=== PATIENT | male | born 1965 | race Caucasian/White ===

== ENCOUNTER 2018-02-26 08:06 | Emergency (ER) | payer OTHER ==
--- NOTE | 2018-02-26 08:21 | CPEKG ---
Heart Rate: 75 RR Interval: 800 P-R Interval: 144 QRSD Interval: 90 QT Interval: 392 QTC Interval: 438 P [place]: 12 QRS [place]: 35 T Wave [place]: 14 EKG Severity - NORMAL ECG - EKG Impression: SINUS RHYTHM Electronically Signed By: Eros Tesfaye 26-Feb-2018 14:38:15
--- NOTE | 2018-02-26 08:44 | EDPHY ---
H & P Time Seen by Provider: 02/26/18 08:43 HPI/ROS: Chief complaint. Lightheaded HPI. Patient's 52-year-old male presents emergency department with continuous chest pressure and heaviness in his chest for the last 5 days. 5 days ago he had a stent placed at [facility]. He has had constant chest pain since then. He had this similar chest discomfort for months preceding his procedure. Prior to the procedure the heaviness and pressure in his chest was worse with exertion and he had shortness of breath. Since the procedure he has had some mild but constant chest pressure but no change in shortness of breath. His chest discomfort is not change with exertion, breathing, position. It is described as behind the sternum and without radiation. No unusual leg pain or swelling. In the last 48 hr he has had 2 episodes of lightheadedness. Prior to his procedure he had been lightheaded similarly 4 months. Now he has had 2 waves in the past 48 hr. No symptoms now. No focal weakness or paresthesias. ROS Constitutional. no fever/chills, no weakness Eyes. no problems with vision ENT. no sore throat, no nasal drainage Cardiovascular. Chest heaviness Respiratory. no shortness of breath, no cough Abdominal. no abdominal pain, no nausea/vomiting, no diarrhea . no problems urinating MS. no calf pain/swelling, no neck/back pain, no joint pain Skin. no rash Lymph. no swollen glands Neuro. Lightheaded Past Medical/Surgical History: Dyslipidemia, recent cardiac stent Social History: , nonsmoker, no alcohol Smoking Status: Never smoked Physical Exam: General Appearance: Alert well-developed male mild distress vital signs are stable Eyes: Pupils equal and round no pallor or injection. ENT, Mouth: Mucous membranes are moist. Respiratory: There are no retractions, lungs are clear to auscultation. Cardiovascular: Regular rate and rhythm. Gastrointestinal: Abdomen is soft and nontender, no masses, bowel sounds normal. Neurological: Awake and alert, sensory and motor exams grossly normal. Skin: Warm and dry, no rashes. Musculoskeletal: Neck is supple nontender. Extremities symmetrical, full range of motion. Psychiatric: Patient is oriented X 3, there is no agitation. Constitutional: Initial Vital Signs Temperature (C) 36.5 C 02/26/18 08:09 Heart Rate 77 06/05/18 08:09 Respiratory Rate 18 02/26/18 08:09 Blood Pressure 182/106 H 02/26/18 08:09 O2 Sat (%) 97 02/26/18 08:09 O2 Delivery Mode Room Air Allergies/Adverse Reactions: No Known Allergies Allergy (Unverified 02/26/18 08:07) Home Medications: Medication Instructions Recorded Aspirin 81mg (*) 02/26/18 Plavix 02/26/18 Rosuvastatin Calcium 02/26/18 Medical Decision Making - Diagnostics EKG Interpretation: EKG interpreted by me shows normal sinus rhythm normal interval and axis. QRS is normal there is no significant ST elevation or depression. There is no arrhythmia. The rate is 75 Imaging Results: Imaging Impressions Chest X-Ray 02/26/18 08:59 Impression: Negative. Procedures: IV normal saline, monitor ED Course/Re-evaluation: Re-evaluation 9:55 a.m.. Patient is stable. He and I discussed EKG, lab, imaging study results. I consulted and discussed case with Dr. Sobeida Mercado ([phone]) his sap consultant who saw the patient last week and performed the treadmill. She tells me that the patient had a proximal LAD stent placed. She and I discussed workup and she is comfortable with the patient being treated as an outpatient and will see the patient in the office tomorrow. I discussed this treatment plan with the patient. He is also offered admission but declines. We discussed risks and benefits of admission versus outpatient workup. The patient is comfortable following up tomorrow with his sap consultant.. He is encouraged to return at any point for worsening symptoms Differential Diagnosis: Patient with a recent stent for chronic problems and continues to have some chest heaviness. However he has a normal workup including normal EKG and troponin as well as D-dimer. He has had continuous chest discomfort and with normal troponin I do not think that this isonary syndrome - Data Points Laboratory Results: Laboratory Results 02/26/18 08:20 02/26/18 08:20 02/26/18 02/26/18 02/26/18 08:25 08:20 08:20 WBC RBC Hgb Hct MCV MCH MCHC RDW Plt Count MPV Neut % (Auto) Lymph % (Auto) [place] % (Auto) Eos % (Auto) Baso % (Auto) Nucleat RBC Rel Count Absolute Neuts (auto) Absolute Lymphs (auto) Absolute Monos (auto) Absolute Eos (auto) Absolute Basos (auto) Absolute Nucleated RBC Immature Gran % Immature Gran # PT 13.2 SEC SEC (12.0-15.0) INR 0.98 (0.83-1.16) D-Dimer 0.47 ug/mLFEU ug/mLFEU (0.00-0.50) Sodium 144 mEq/L mEq/L (135-145) Potassium 4.1 mEq/L mEq/L (3.3-5.0) Chloride 103 mEq/L mEq/L (97-110) Carbon Dioxide 26 mEq/l mEq/l (22-31) Anion Gap 15 mEq/L mEq/L (8-16) BUN 20 mg/dL mg/dL (7-23) Creatinine 0.9 mg/dL mg/dL (0.7-1.3) Estimated GFR > 60 Glucose 100 mg/dL mg/dL (70-100) Calcium 9.6 mg/dL mg/dL (8.5-10.4) POC Troponin I 0.01 ng/mL ng/mL (0.00-0.08) 02/26/18 08:20 WBC 6.40 10^3/uL 10^3/uL (3.80-9.50) RBC 5.14 10^6/uL 10^6/uL (4.40-6.38) Hgb 16.2 g/dL g/dL (13.7-17.5) Hct 47.0 % % (40.0-51.0) MCV 91.4 fL fL (81.5-99.8) MCH 31.5 pg pg (27.9-34.1) MCHC 34.5 g/dL g/dL (32.4-36.7) RDW 12.3 % % (11.5-15.2) Plt Count 202 10^3/uL 10^3/uL (150-400) MPV 10.2 fL fL (8.7-11.7) Neut % (Auto) 61.1 % % (39.3-74.2) Lymph % (Auto) 26.7 % % (15.0-45.0) [place] % (Auto) 9.4 % % (4.5-13.0) Eos % (Auto) 1.7 % % (0.6-7.6) Baso % (Auto) 0.8 % % (0.3-1.7) Nucleat RBC Rel Count 0.0 % % (0.0-0.2) Absolute Neuts (auto) 3.91 10^3/uL 10^3/uL (1.70-6.50) Absolute Lymphs (auto) 1.71 10^3/uL 10^3/uL (1.00-3.00) Absolute Monos (auto) 0.60 10^3/uL 10^3/uL (0.30-0.80) Absolute Eos (auto) 0.11 10^3/uL 10^3/uL (0.03-0.40) Absolute Basos (auto) 0.05 10^3/uL 10^3/uL (0.02-0.10) Absolute Nucleated RBC 0.00 10^3/uL 10^3/uL (0-0.01) Immature Gran % 0.3 % % (0.0-1.1) Immature Gran # 0.02 10^3/uL 10^3/uL (0.00-0.10) PT INR D-Dimer Sodium Potassium Chloride Carbon Dioxide Anion Gap BUN Creatinine Estimated GFR Glucose Calcium POC Troponin I Point of Care Test Results: Chemistry 02/26/18 08:25 POC Troponin I 0.01 ng/mL ng/mL (0.00-0.08) Departure - Departure Disposition: Home, Routine, Self-Care Clinical Impression: Chest pain Qualifiers: Chest pain type: unspecified Qualified Code(s): R07.9 - Chest pain, unspecified Condition: Good Instructions: Chest Pain (ED) Additional Instructions: Continue regular medications. Return today for worsening symptoms. Follow up with Dr. Singh tomorrow without fail. Referrals: Denny Sands MD [Primary Care Provider] - 1 day without fail Stand Alone Forms: Work Excuse
[2018-02-26 08:49] LABS: PLATELET COUNT 202 10^3/uL (150-400)
[2018-02-26 08:57] LABS: INR 0.98 (0.83-1.16); PROTIME(PATIENT) 13.2 SEC (12.0-15.0)
[2018-02-26 11:01] VITALS: BP 139/97
== END 2018-02-26 11:01 | disposition home or self-care (01) ==
DX: R07.9 Chest pain, unspecified (principal); Z79.82 Long term (current) use of aspirin
CPT/HCPCS: 84484-PO

== ENCOUNTER 2018-03-06 14:24 | Emergency (ER) | payer OTHER ==
--- NOTE | 2018-03-06 15:47 | EDPHY ---
H & P Time Seen by Provider: 03/06/18 15:17 HPI/ROS: Chief complaint. Chest pain HPI. 52-year-old male presents emergency department with complaint of chest discomfort. The patient had a proximal LAD stent placed February 21. He was seen for same symptoms February 26 with normal workup. He tells me that since his stent on February 21 he has had slight shortness of breath and lightheadedness. He went to cardiac rehab yesterday and they noticed his blood pressure was elevated. He felt fine on the treadmill and then symptoms returned afterwards. Apparently his blood pressure was about 160/1 100-110. He felt well this morning. He has had his continued heaviness in his chest since his stent however today he had an aching component that radiate to his back. He tells me the heaviness has been there continuously. The aching going through to his back began about noon. His digital court reporter called in a prescription for antihypertensive medication today and the patient has not yet picked up. No fever cough. No abdominal pain. No unusual leg pain or swelling ROS Constitutional. no fever/chills, no weakness Eyes. no problems with vision ENT. no sore throat, no nasal drainage Cardiovascular. Continued heaviness in chest. Today some aching going through to his back Respiratory. Slight shortness of breath since February 21 Abdominal. no abdominal pain, no nausea/vomiting, no diarrhea . no problems urinating MS. no calf pain/swelling, no neck/back pain, no joint pain Skin. no rash Lymph. no swollen glands Neuro. Lightheaded since February 21 Past Medical/Surgical History: Past medical history is significant for the LAD stent placed 02/21/2018 and dyslipidemia Social History: Single, nonsmoker, no alcohol Smoking Status: Never smoked Physical Exam: General Appearance: Alert well-developed male mild distress vital signs are stable. Initial blood pressure 123/96. Repeat on the monitor 133/89 Eyes: Pupils equal and round no pallor or injection. ENT, Mouth: Mucous membranes are moist. Respiratory: There are no retractions, lungs are clear to auscultation. Cardiovascular: Regular rate and rhythm. Gastrointestinal: Abdomen is soft and nontender, no masses, bowel sounds normal. Neurological: Awake and alert, sensory and motor exams grossly normal. Skin: Warm and dry, no rashes. Musculoskeletal: Neck is supple nontender. Extremities symmetrical, full range of motion. Psychiatric: Patient is oriented X 3, there is no agitation. Constitutional: Initial Vital Signs Heart Rate 82 03/06/18 14:25 Respiratory Rate 18 03/06/18 14:25 Blood Pressure 123/96 H 03/06/18 14:25 O2 Sat (%) 97 03/06/18 14:25 O2 Delivery Mode Room Air Allergies/Adverse Reactions: No Known Allergies Allergy (Unverified 02/26/18 08:07) Home Medications: Medication Instructions Recorded Aspirin 81mg (*) 02/26/18 Plavix 02/26/18 Rosuvastatin Calcium 02/26/18 Medical Decision Making - Diagnostics EKG Interpretation: EKG interpreted by me shows normal sinus rhythm normal interval and axis. QRS is normal there is no significant ST elevation or depression. There is no arrhythmia. The rate is 75. No significant change from previous EKG 02/26/2018 Imaging Results: Imaging Impressions Chest X-Ray 03/06/18 15:49 Impression: No acute findings in the chest. Procedures: IV normal saline, monitor ED Course/Re-evaluation: Re-evaluation 5:30 p.m. Patient is stable. He and I discussed imaging lab EKG results. We discussed treatment plan including criteria for return and importance of follow-up and further evaluation. He is encouraged to pharmacy picking tech his blood pressure prescription this afternoon. He expresses understanding and agreement Differential Diagnosis: I considered acute coronary syndrome, PE, pneumonia, pneumothorax. Patient has had fairly continuous chest discomfort and the aching in his back is been present for 3-4 hours. His troponin is 0. No evidence for cardiac injury - Data Points Laboratory Results: Laboratory Results 03/06/18 16:15 03/06/18 16:15 03/06/18 03/06/18 03/06/18 16:46 16:15 16:15 WBC RBC Hgb Hct MCV MCH MCHC RDW Plt Count MPV Neut % (Auto) Lymph % (Auto) [place] % (Auto) Eos % (Auto) Baso % (Auto) Nucleat RBC Rel Count Absolute Neuts (auto) Absolute Lymphs (auto) Absolute Monos (auto) Absolute Eos (auto) Absolute Basos (auto) Absolute Nucleated RBC Immature Gran % Immature Gran # D-Dimer 0.29 ug/mLFEU ug/mLFEU (0.00-0.50) Sodium 140 mEq/L mEq/L (135-145) Potassium 4.2 mEq/L mEq/L (3.3-5.0) Chloride 104 mEq/L mEq/L (97-110) Carbon Dioxide 21 mEq/l L mEq/l (22-31) Anion Gap 15 mEq/L mEq/L (8-16) BUN 16 mg/dL mg/dL (7-23) Creatinine 0.8 mg/dL mg/dL (0.7-1.3) Estimated GFR > 60 Glucose 101 mg/dL H mg/dL (70-100) Calcium 9.2 mg/dL mg/dL (8.5-10.4) POC Troponin I 0.00 ng/mL ng/mL (0.00-0.08) 03/06/18 16:15 WBC 9.16 10^3/uL 10^3/uL (3.80-9.50) RBC 4.87 10^6/uL 10^6/uL (4.40-6.38) Hgb 15.8 g/dL g/dL (13.7-17.5) Hct 43.8 % % (40.0-51.0) MCV 89.9 fL fL (81.5-99.8) MCH 32.4 pg pg (27.9-34.1) MCHC 36.1 g/dL g/dL (32.4-36.7) RDW 12.4 % % (11.5-15.2) Plt Count 232 10^3/uL 10^3/uL (150-400) MPV 10.0 fL fL (8.7-11.7) Neut % (Auto) 73.2 % % (39.3-74.2) Lymph % (Auto) 19.0 % % (15.0-45.0) [place] % (Auto) 6.2 % % (4.5-13.0) Eos % (Auto) 0.8 % % (0.6-7.6) Baso % (Auto) 0.5 % % (0.3-1.7) Nucleat RBC Rel Count 0.0 % % (0.0-0.2) Absolute Neuts (auto) 6.70 10^3/uL H 10^3/uL (1.70-6.50) Absolute Lymphs (auto) 1.74 10^3/uL 10^3/uL (1.00-3.00) Absolute Monos (auto) 0.57 10^3/uL 10^3/uL (0.30-0.80) Absolute Eos (auto) 0.07 10^3/uL 10^3/uL (0.03-0.40) Absolute Basos (auto) 0.05 10^3/uL 10^3/uL (0.02-0.10) Absolute Nucleated RBC 0.00 10^3/uL 10^3/uL (0-0.01) Immature Gran % 0.3 % % (0.0-1.1) Immature Gran # 0.03 10^3/uL 10^3/uL (0.00-0.10) D-Dimer Sodium Potassium Chloride Carbon Dioxide Anion Gap BUN Creatinine Estimated GFR Glucose Calcium POC Troponin I Point of Care Test Results: Chemistry 03/06/18 16:46 POC Troponin I 0.00 ng/mL ng/mL (0.00-0.08) Departure - Departure Disposition: Home, Routine, Self-Care Clinical Impression: Chest pain Qualifiers: Chest pain type: unspecified Qualified Code(s): R07.9 - Chest pain, unspecified Hypertension Qualifiers: Hypertension type: essential hypertension Qualified Code(s): I10 - Essential ( primary) hypertension Condition: Good Instructions: Hypertension (ED) Additional Instructions: Pick appear prescription for blood pressure medication and take as prescribed. Easy activity but may resume fairly normal activity Return for worsening symptoms. Follow-up with Dr. Singh as scheduled Referrals: Denny Sands MD [Primary Care Provider] - As per Instructions
[2018-03-06 16:28] LABS: PLATELET COUNT 232 10^3/uL (150-400)
[2018-03-06 17:56] VITALS: BP 132/101
== END 2018-03-06 17:54 | disposition home or self-care (01) ==
DX: R07.9 Chest pain, unspecified (principal); I10 Essential (primary) hypertension; Z79.82 Long term (current) use of aspirin
CPT/HCPCS: 84484-PO

== ENCOUNTER 2018-04-02 15:18 | Emergency (ER) | payer OTHER ==
--- NOTE | 2018-04-02 16:40 | EDPHY ---
H & P Time Seen by Provider: 04/02/18 16:28 HPI/ROS: Chief complaint. Blood in urine HPI. 52-year-old male presents with blood nearly 3 days. No frequency or dysuria. He does have a history of UTI and kidney stones. However he has no flank or abdominal pain. No fever. He had a cyst on his scrotum that he squeeze several days ago. He had 1 hr history of pain left testicle today but not now. No swelling or injury to penis or testicles. No other complaints. Patient does take Plavix and aspirin ROS Constitutional. no fever/chills, no weakness Eyes. no problems with vision ENT. no sore throat, no nasal drainage Cardiovascular. no chest pain Respiratory. no shortness of breath, no cough Abdominal. no abdominal pain, no nausea/vomiting, no diarrhea . No problems urinating but blood in urine MS. no calf pain/swelling, no neck/back pain, no joint pain Skin. no rash Lymph. no swollen glands Neuro. no headache, no dizziness, no difficulty walking or with speech Past Medical/Surgical History: Cardiac stent, hypertension, dyslipidemia Social History: Single, nonsmoker, no alcohol Smoking Status: Never smoked Physical Exam: General Appearance: Alert well-developed male mild distress vital signs stable Eyes: Pupils equal and round no pallor or injection. ENT, Mouth: Mucous membranes are moist. Respiratory: There are no retractions, lungs are clear to auscultation. Cardiovascular: Regular rate and rhythm. Gastrointestinal: Abdomen is soft and nontender, no masses, bowel sounds normal. Circumcised penis which is normal. No testicular pain or swelling. Pimple on the scrotum where he was squeezing. No cellulitis. No flank pain Neurological: Awake and alert, sensory and motor exams grossly normal. Skin: Warm and dry, no rashes. Musculoskeletal: Neck is supple nontender. Extremities symmetrical, full range of motion. Psychiatric: Patient is oriented X 3, there is no agitation. Constitutional: Initial Vital Signs Temperature (C) 36.9 C 04/02/18 15:30 Heart Rate 75 04/02/18 15:30 Respiratory Rate 17 04/02/18 15:30 Blood Pressure 108/79 04/02/18 15:30 O2 Sat (%) 94 04/02/18 15:30 O2 Delivery Mode Room Air Allergies/Adverse Reactions: No Known Allergies Allergy (Verified 04/02/18 15:29) Home Medications: Medication Instructions Recorded Aspirin 81mg (*) 02/26/18 Plavix 02/26/18 Rosuvastatin Calcium 02/26/18 Crestor 04/02/18 Crestor 04/02/18 oxyCODONE/APAP 5/325 [Percocet 1 tab PO Q4-6PRN PRN #14 tab 04/02/18 5/325] Medical Decision Making - Diagnostics Imaging Results: Imaging Impressions Abdomen CT 04/02/18 17:05 Impression: 1. Bilateral nephrolithiasis, with a partially obstructing proximal right ureterolith measuring 5 x 5 mm. 2. There is a benign-appearing upper pole right parapelvic cyst measuring 11 x 13 x 19 mm. 3. Colonic diverticulosis, without active diverticulitis. 4. Prostate gland enlargement with central zone hypertrophy which indents the urinary bladder base. 5. Grade 2 spondylolisthesis at L5-S1 with accompanying spondylolysis, severe degenerative disk space narrowing, and moderate bilateral neural foraminal stenosis. 6. Normal appearance of the appendix. Findings were discussed with LENNY RIBEIRO MD at 18:27, on 04/02/2018. We also discussed the utility of urology follow-up. CT abdomen pelvis with IV contrast shows a partially obstructing right proximal ureteral stone measuring 5 x 5 mm. Benign cyst in the upper pole right kidney Grade 2 spondylolisthesis at L5-S1 Reviewed by me and discussed Dr. Austin Procedures: IV normal saline ED Course/Re-evaluation: 5:00 p.m. Patient is stable. He and I discussed the blood in his urine and discussion for further evaluation. He expresses understanding Re-evaluation 6:40 p.m.. Patient and I discussed imaging and lab results. We discussed treatment plan including criteria for return importance of follow-up further evaluation. He expresses understanding and agreement Differential Diagnosis: I considered urinary tract infection, pyelonephritis, kidney stone - Data Points Laboratory Results: Laboratory Results 04/02/18 17:10 04/02/18 17:10 04/02/18 04/02/18 04/02/18 17:10 17:10 17:10 WBC 5.92 10^3/uL 10^3/uL (3.80-9.50) RBC 4.69 10^6/uL 10^6/uL (4.40-6.38) Hgb 14.9 g/dL g/dL (13.7-17.5) Hct 43.6 % % (40.0-51.0) MCV 93.0 fL fL (81.5-99.8) MCH 31.8 pg pg (27.9-34.1) MCHC 34.2 g/dL g/dL (32.4-36.7) RDW 12.4 % % (11.5-15.2) Plt Count 169 10^3/uL 10^3/uL (150-400) MPV 10.3 fL fL (8.7-11.7) Neut % (Auto) 69.0 % % (39.3-74.2) Lymph % (Auto) 21.6 % % (15.0-45.0) Gibson % (Auto) 7.9 % % (4.5-13.0) Eos % (Auto) 0.8 % % (0.6-7.6) Baso % (Auto) 0.5 % % (0.3-1.7) Nucleat RBC Rel Count 0.0 % % (0.0-0.2) Absolute Neuts (auto) 4.08 10^3/uL 10^3/uL (1.70-6.50) Absolute Lymphs (auto) 1.28 10^3/uL 10^3/uL (1.00-3.00) Absolute Monos (auto) 0.47 10^3/uL 10^3/uL (0.30-0.80) Absolute Eos (auto) 0.05 10^3/uL 10^3/uL (0.03-0.40) Absolute Basos (auto) 0.03 10^3/uL 10^3/uL (0.02-0.10) Absolute Nucleated RBC 0.00 10^3/uL 10^3/uL (0-0.01) Immature Gran % 0.2 % % (0.0-1.1) Immature Gran # 0.01 10^3/uL 10^3/uL (0.00-0.10) PT 14.1 SEC SEC (12.0-15.0) INR 1.07 (0.83-1.16) APTT 27.5 SEC SEC (23.0-38.0) Sodium 137 mEq/L mEq/L (135-145) Potassium 4.0 mEq/L mEq/L (3.3-5.0) Chloride 106 mEq/L mEq/L (97-110) Carbon Dioxide 25 mEq/l mEq/l (22-31) Anion Gap 6 mEq/L L mEq/L (8-16) BUN 17 mg/dL mg/dL (7-23) Creatinine 1.0 mg/dL mg/dL (0.7-1.3) Estimated GFR > 60 Glucose 107 mg/dL H mg/dL (70-100) Calcium 9.8 mg/dL mg/dL (8.5-10.4) Urine Color Urine Appearance Urine pH Ur Specific [place] Urine Protein Urine Ketones Urine Blood Urine Nitrate Urine Bilirubin Urine Urobilinogen Ur Leukocyte Esterase Urine RBC Urine WBC Ur Epithelial Cells Urine Bacteria Urine Mucus Urine Glucose 04/02/18 16:00 WBC RBC Hgb Hct MCV MCH MCHC RDW Plt Count MPV Neut % (Auto) Lymph % (Auto) [place] % (Auto) Eos % (Auto) Baso % (Auto) Nucleat RBC Rel Count Absolute Neuts (auto) Absolute Lymphs (auto) Absolute Monos (auto) Absolute Eos (auto) Absolute Basos (auto) Absolute Nucleated RBC Immature Gran % Immature Gran # PT INR APTT Sodium Potassium Chloride Carbon Dioxide Anion Gap BUN Creatinine Estimated GFR Glucose Calcium Urine Color YELLOW Urine Appearance HAZY Urine pH 6.0 (5.0-7.5) Ur Specific [place] 1.010 (1.002-1.030) Urine Protein 1+ H (NEGATIVE) Urine Ketones NEGATIVE (NEGATIVE) Urine Blood 3+ H (NEGATIVE) Urine Nitrate NEGATIVE (NEGATIVE) Urine Bilirubin NEGATIVE (NEGATIVE) Urine Urobilinogen NEGATIVE EU EU (0.2-1.0) Ur Leukocyte Esterase NEGATIVE (NEGATIVE) Urine RBC 50-182 /hpf H /hpf (0-3) Urine WBC 0-1 /hpf /hpf (0-3) Ur Epithelial Cells NONE SEEN /lpf /lpf (NONE-1+) Urine Bacteria 1+ /hpf H /hpf (NONE SEEN) Urine Mucus TRACE /lpf /lpf (NONE-1+) Urine Glucose NEGATIVE (NEGATIVE) Medications Given: Discontinued Medications Sodium Chloride (Ns) 1,000 mls @ 0 mls/hr IV EDNOW ONE; Wide Open PRN Reason: Protocol Stop: 04/02/18 17:05 Last Admin: 04/02/18 17:13 Dose: 1,000 mls Departure - Departure Disposition: Home, Routine, Self-Care Clinical Impression: Calculus of right kidney Hematuria Qualifiers: Hematuria type: gross Qualified Code(s): R31.0 - Gross hematuria Condition: Good Instructions: Kidney Stones (ED), How to Strain Your Urine (ED) Additional Instructions: Drink plenty of fluids and stay hydrated. Strain your urine and save stone for urologist. Ibuprofen and Percocet as needed for pain . Return for worsening symptoms. Call urologist tomorrow to arrange follow-up evaluation of kidney stone and blood in urine Referrals: DADA,UNKNOWN [Other] - As per Instructions Marino Montero MD [Medical Doctor] - 2-3 days, call for appt. Prescriptions: oxyCODONE/APAP 5/325 [Percocet 5/325] 1 tab PO Q4-6PRN PRN #14 tab PRN Reason: Pain, Moderate
[2018-04-02] MEDS ORDERED: NS 1,000 ML IV ONE (17:04)
[2018-04-02 17:30] LABS: PLATELET COUNT 169 10^3/uL (150-400)
[2018-04-02 17:34] LABS: INR 1.07 (0.83-1.16); PROTIME(PATIENT) 14.1 SEC (12.0-15.0)
[2018-04-02] MEDS ORDERED: IOPAMIDOL (ISOVUE-300) 100 ML BTL ONE (17:43)
[2018-04-02 19:14] VITALS: BP 138/100
== END 2018-04-02 19:24 | disposition home or self-care (01) ==
DX: R31.0 Gross hematuria (principal); N20.0 Calculus of kidney; E86.9 Volume depletion, unspecified; I10 Essential (primary) hypertension; Z79.82 Long term (current) use of aspirin; Z95.5 Presence of coronary angioplasty implant and graft
CPT/HCPCS: Q9967

== ENCOUNTER → 2018-06-18 | Outpatient (CLI) | payer OTHER | LOC: FCPNEURO 21:00 | PROVIDERS: ATTEND Student in an Organized Health Care Education/Training Program | DX: G47.33 Obstructive sleep apnea (adult) (pediatric) (principal); G47.39 Other sleep apnea ==

== ENCOUNTER → 2018-10-17 | Outpatient (CLI) | payer OTHER ==
[~2018-10-17] MED LIST: IOPAMIDOL (ISOVUE 370) 100 ML BTL IV ONE
== END ==
LOC: FIMAGING 07:40
PROVIDERS: ATTEND Physician Assistant Medical
DX: R42 Dizziness and giddiness (principal); H53.9 Unspecified visual disturbance; I25.10 Atherosclerotic heart disease of native coronary artery without angina pectoris
CPT/HCPCS: Q9967